=== PATIENT | male | born 1985 | race Two or more races ===

== ENCOUNTER 2019-11-30 13:50 | Emergency (ER) | payer OTHER ==
[~2019-11-30] VITALS: Ht 193 cm; Wt 104.3 kg
[~2019-11-30 13:50] MED LIST: ACEBUTCAFT PO; ALBU90OI INH; BENZ100A PO; CLON.2 PO; CYCL10 PO; CYCL1OPSOA RIGHTEYE; HYDACE5; HYDACE5 PO; IBUP600 PO; META800 PO; METO10 PO; NAPR500 PO; NEURONTIN PO; Norco 5-325 Ta1 EACH PO; OMEP20ER PO; OMEP40CA12 PO; PRILOSEC OTC; PROACE100 PO; PROCODE120 PO; PSEU120ER PO; Percocet 5-3251 EACH PO; Prednisone20 MG PO; Prilosec Otc20 MG; RXMETA800 PO; RXNAPNA550 PO; RXONDA4ODT MM; RXPROACE PO; RXPROM25S PR; RXTRAM50 PO; Ultram50 MG PO; ZOLP5
[2019-11-30] MEDS ORDERED: PANTOPRAZOLE SO40 M2 PO (14:02)
[2019-11-30] MEDS ORDERED: Prednisone20 MG PO (14:19)
[2019-11-30] MEDS ORDERED: Cleocin HCl300 MG PO (14:19)
== END 2019-11-30 14:55 | disposition home or self-care (01) ==
LOC: ER 13:50
DX: K13.0 Diseases of lips (principal); K08.89 Other specified disorders of teeth and supporting structures; T36.0X5A Adverse effect of penicillins, initial encounter; F17.210 Nicotine dependence, cigarettes, uncomplicated; Z79.899 Other long term (current) drug therapy
CPT/HCPCS: 99283; J1100; Q0163

== ENCOUNTER 2020-07-12 11:46 | Emergency (ER) | payer OTHER ==
[~2020-07-12] VITALS: Ht 193 cm; Wt 99.8 kg
[~2020-07-12 11:46] MED LIST changes: +Cleocin HCl300 MG PO; +PANTOPRAZOLE SO40 M2 PO
[2020-07-12] MEDS ORDERED: ERYT1OIN LEFTEYE (13:00)
== END 2020-07-12 13:13 | disposition home or self-care (01) ==
LOC: ER 11:46
DX: T15.92XA Foreign body on external eye, part unspecified, left eye, initial encounter (principal); F17.210 Nicotine dependence, cigarettes, uncomplicated; Z88.0 Allergy status to penicillin
CPT/HCPCS: 65222; 99283-25

== ENCOUNTER 2020-11-01 14:50 | Emergency (ER) | payer OTHER ==
[~2020-11-01] VITALS: Ht 193 cm; Wt 99.8 kg
[~2020-11-01 14:50] MED LIST changes: +ERYT1OIN LEFTEYE
== END 2020-11-01 16:39 | disposition home or self-care (01) ==
LOC: ER 14:50
DX: S61.412A Laceration without foreign body of left hand, initial encounter (principal); F17.210 Nicotine dependence, cigarettes, uncomplicated; Z88.0 Allergy status to penicillin; W23.0XXA Caught, crushed, jammed, or pinched between moving objects, initial encounter
CPT/HCPCS: 12001; 73130; 99283-25

== ENCOUNTER 2021-09-22 22:12 | Emergency (ER) | payer OTHER ==
[~2021-09-22] VITALS: Ht 193 cm; Wt 111.1 kg
[2021-09-22] MEDS ORDERED: METH40 (22:19)
[2021-09-22 22:51] LABS: BASOPHILS ABSOLUTE AUTO 0.03 K/mm3 (0.00-0.23); BASOPHILS PERCENT AUTO 0 % (0-2); EOSINOPHILS ABSOLUTE AUTO 0.01 K/mm3 (0.00-0.68); EOSINOPHILS PERCENT AUTO 0 % (0-6); Hematocrit 44.5 % (37.0-53.0); Hemoglobin 15.3 g/dL (13.5-17.5); IMMATURE GRAN ABSOLUTE AUTO 0.15 K/mm3 (0.00-0.10); IMMATURE GRAN PERCENT AUTO 1 % (0-1); LYMPHOCYTES ABSOLUTE AUTO 2.17 K/mm3 (0.84-5.20); LYMPHOCYTES PERCENT AUTO 15 % (21-46); MONOCYTES ABSOLUTE AUTO 0.34 K/mm3 (0.16-1.47); MONOCYTES PERCENT AUTO 2 % (4-13); Mean Corpuscular HGB 30.8 pg (26.0-34.0); Mean Corpuscular HGB Conc 34.4 g/dL (31.5-36.5); Mean Corpuscular Volume 90 fL (80-100); Mean Platelet Volume 9.1 fL (9.1-12.4); NEUTROPHILS ABSOLUTE AUTO 11.77 K/mm3 (1.96-9.15); NEUTROPHILS PERCENT AUTO 81 % (41-73); Platelet Count 305 K/mm3 (150-400); RDW Coefficient Variation 13.2 % (11.7-14.2); Red Blood Cell Count 4.96 M/mm3 (4.30-5.90); White Blood Cell Count 14.47 K/mm3 (4.00-11.30)
[2021-09-22 23:03] LABS: Alanine Aminotransfer (ALT/SGP 46 U/L (12-78); Albumin, Blood 4.1 g/dL (3.4-5.0); Alk Phos 97 U/L (50-136); Anion Gap 11 mmol/L (6-16); Aspartate Aminotrans (AST/SGOT 22 U/L (12-37); Bilirubin, Total 0.5 mg/dL (0.1-1.0); Blood Urea Nitrogen 12 mg/dL (8-24); Bun/Creatinine Ratio 19.9 (12.0-20.0); CO2, Blood 26 mmol/L (21-32); Calcium, Blood 10.3 mg/dL (8.5-10.1); Chloride, Blood 99 mmol/L (98-108); Globulin, Blood 4.3 g/dL (2.2-4.0); Glomerular Filtration Rate >60 (60-); Glucose, Blood 132 mg/dL (70-99); Potassium, Blood 3.9 mmol/L (3.5-5.5); Sodium, Blood 136 mmol/L (136-145); Total Protein, Blood 8.4 g/dL (6.4-8.2)
[2021-09-23] MEDS ORDERED: PROM12.5S PR (00:51)
== END 2021-09-23 03:00 | disposition home or self-care (01) ==
LOC: ER 22:12
PROVIDERS: Emergency Medicine
DX: R11.2 Nausea with vomiting, unspecified (principal); R00.0 Tachycardia, unspecified; D72.829 Elevated white blood cell count, unspecified; K21.9 Gastro-esophageal reflux disease without esophagitis; Z91.030 Bee allergy status; Z88.0 Allergy status to penicillin; Z79.899 Other long term (current) drug therapy
CPT/HCPCS: 36415; 74177; 80053; 83690; 85025; 96374; 96375; 99285-25; A9270; J0780; J1200; J2405; J7030; Q9967

== ENCOUNTER 2021-09-29 10:37 | Emergency (ER) | payer OTHER ==
[~2021-09-29] VITALS: Ht 190.5 cm; Wt 111.1 kg
[~2021-09-29 10:37] MED LIST changes: +METH40; +PROM12.5S PR
[2021-09-29 11:30] LABS: Alanine Aminotransfer (ALT/SGP 24 U/L (12-78); Albumin, Blood 3.6 g/dL (3.4-5.0); Albumin/Globulin Ratio 0.9 (0.8-1.8); Alk Phos 99 U/L (50-136); Anion Gap 5 mmol/L (6-16); Aspartate Aminotrans (AST/SGOT 17 U/L (12-37); Bilirubin, Total 0.2 mg/dL (0.1-1.0); Blood Urea Nitrogen 10 mg/dL (8-24); CO2, Blood 28 mmol/L (21-32); Calcium, Blood 9.2 mg/dL (8.5-10.1); Chloride, Blood 107 mmol/L (98-108); Creatinine, Blood 0.72 mg/dL (0.60-1.20); Globulin, Blood 3.9 g/dL (2.2-4.0); Glomerular Filtration Rate >60 (60-); Glucose, Blood 107 mg/dL (70-99); Potassium, Blood 4.2 mmol/L (3.5-5.5); Sodium, Blood 140 mmol/L (136-145); Total Protein, Blood 7.5 g/dL (6.4-8.2)
[2021-09-29 11:32] LABS: BASOPHILS ABSOLUTE AUTO 0.03 K/mm3 (0.00-0.23); BASOPHILS PERCENT AUTO 0 % (0-2); EOSINOPHILS ABSOLUTE AUTO 0.15 K/mm3 (0.00-0.68); EOSINOPHILS PERCENT AUTO 1 % (0-6); Hematocrit 41.9 % (37.0-53.0); Hemoglobin 13.7 g/dL (13.5-17.5); IMMATURE GRAN ABSOLUTE AUTO 0.07 K/mm3 (0.00-0.10); IMMATURE GRAN PERCENT AUTO 1 % (0-1); LYMPHOCYTES PERCENT AUTO 28 % (21-46); MONOCYTES ABSOLUTE AUTO 0.62 K/mm3 (0.16-1.47); MONOCYTES PERCENT AUTO 5 % (4-13); Mean Corpuscular HGB 30.4 pg (26.0-34.0); Mean Corpuscular HGB Conc 32.7 g/dL (31.5-36.5); Mean Corpuscular Volume 93 fL (80-100); Mean Platelet Volume 8.5 fL (9.1-12.4); NEUTROPHILS ABSOLUTE AUTO 8.02 K/mm3 (1.96-9.15); NEUTROPHILS PERCENT AUTO 65 % (41-73); Platelet Count 281 K/mm3 (150-400); RDW Coefficient Variation 13.2 % (11.7-14.2); RDW Standard Deviation 45.1 fL (35.1-46.3); White Blood Cell Count 12.29 K/mm3 (4.00-11.30)
[2021-09-29] MEDS ORDERED: PROM25 PO (14:31)
[2021-09-29] MEDS ORDERED: HYDHCL25 PO (14:31)
[2021-09-30] MEDS ORDERED: PROM12.5S PR (01:49)
[2021-09-30] MEDS ORDERED: CATAPRES0.1 MG PO (01:49)
== END 2021-09-29 14:45 | disposition home or self-care (01) ==
LOC: ER 10:37
PROVIDERS: Physician Assistant
DX: F11.23 Opioid dependence with withdrawal (principal); R11.2 Nausea with vomiting, unspecified; K21.9 Gastro-esophageal reflux disease without esophagitis
CPT/HCPCS: 36415; 80053; 83690; 85025; A9270; J2405; J2550; J7120

== ENCOUNTER 2021-09-29 22:23 | Emergency (ER) | payer OTHER ==
[~2021-09-29] VITALS: Ht 193 cm; Wt 108.9 kg
[~2021-09-29 22:23] MED LIST changes: +HYDHCL25 PO; +PROM25 PO
[2021-09-29 23:01] LABS: BASOPHILS ABSOLUTE AUTO 0.03 K/mm3 (0.00-0.23); BASOPHILS PERCENT AUTO 0 % (0-2); EOSINOPHILS PERCENT AUTO 0 % (0-6); Hematocrit 44.3 % (37.0-53.0); IMMATURE GRAN ABSOLUTE AUTO 0.11 K/mm3 (0.00-0.10); IMMATURE GRAN PERCENT AUTO 1 % (0-1); LYMPHOCYTES ABSOLUTE AUTO 1.68 K/mm3 (0.84-5.20); LYMPHOCYTES PERCENT AUTO 8 % (21-46); MONOCYTES ABSOLUTE AUTO 0.53 K/mm3 (0.16-1.47); MONOCYTES PERCENT AUTO 3 % (4-13); Mean Corpuscular HGB 30.5 pg (26.0-34.0); Mean Corpuscular HGB Conc 33.9 g/dL (31.5-36.5); Mean Corpuscular Volume 90 fL (80-100); Mean Platelet Volume 8.5 fL (9.1-12.4); NEUTROPHILS ABSOLUTE AUTO 18.96 K/mm3 (1.96-9.15); NEUTROPHILS PERCENT AUTO 89 % (41-73); Platelet Count 353 K/mm3 (150-400); RDW Coefficient Variation 13.2 % (11.7-14.2); RDW Standard Deviation 43.7 fL (35.1-46.3); Red Blood Cell Count 4.92 M/mm3 (4.30-5.90); White Blood Cell Count 21.31 K/mm3 (4.00-11.30)
[2021-09-29 23:19] LABS: Alanine Aminotransfer (ALT/SGP 25 U/L (12-78); Albumin, Blood 4.1 g/dL (3.4-5.0); Alk Phos 93 U/L (50-136); Anion Gap 10 mmol/L (6-16); Aspartate Aminotrans (AST/SGOT 12 U/L (12-37); Bilirubin, Total 0.4 mg/dL (0.1-1.0); Blood Urea Nitrogen 9 mg/dL (8-24); Bun/Creatinine Ratio 15.3 (12.0-20.0); CO2, Blood 25 mmol/L (21-32); Calcium, Blood 9.9 mg/dL (8.5-10.1); Chloride, Blood 101 mmol/L (98-108); Creatinine, Blood 0.59 mg/dL (0.60-1.20); Globulin, Blood 4.1 g/dL (2.2-4.0); Glomerular Filtration Rate >60 (60-); Glucose, Blood 117 mg/dL (70-99); Potassium, Blood 3.9 mmol/L (3.5-5.5); Sodium, Blood 136 mmol/L (136-145); Total Protein, Blood 8.2 g/dL (6.4-8.2)
[2021-09-30] MEDS ORDERED: CATAPRES0.1 MG PO (01:49)
[2021-09-30] MEDS ORDERED: PROM12.5S PR (01:49)
== END 2021-09-30 02:20 | disposition home or self-care (01) ==
LOC: ER 22:23
PROVIDERS: Physician Assistant
DX: F11.23 Opioid dependence with withdrawal (principal); D72.829 Elevated white blood cell count, unspecified; R11.2 Nausea with vomiting, unspecified; K21.9 Gastro-esophageal reflux disease without esophagitis; Z88.0 Allergy status to penicillin; Z91.030 Bee allergy status; Z79.899 Other long term (current) drug therapy; F17.200 Nicotine dependence, unspecified, uncomplicated
CPT/HCPCS: 36415; 80053; 83690; 85025; A9270; J0780; J1200; J2550; J7030

== ENCOUNTER 2022-02-19 12:07 | Emergency (ER) | payer OTHER ==
[~2022-02-19] VITALS: Ht 193 cm; Wt 108.9 kg
[~2022-02-19 12:07] MED LIST changes: +CATAPRES0.1 MG PO
== END 2022-02-19 13:51 | disposition home or self-care (01) ==
LOC: ER 12:07
DX: S02.2XXA Fracture of nasal bones, initial encounter for closed fracture (principal); Z88.0 Allergy status to penicillin; X58.XXXA Exposure to other specified factors, initial encounter
CPT/HCPCS: 70450

== ENCOUNTER 2022-04-20 14:41 | Emergency (ER) | payer OTHER ==
[~2022-04-20] VITALS: Ht 193 cm; Wt 113.8 kg
[2022-04-20 15:07] LABS: BASOPHILS ABSOLUTE AUTO 0.04 K/mm3 (0.00-0.23); BASOPHILS PERCENT AUTO 0 % (0-2); EOSINOPHILS ABSOLUTE AUTO 0.23 K/mm3 (0.00-0.68); EOSINOPHILS PERCENT AUTO 2 % (0-6); Hematocrit 46.7 % (37.0-53.0); Hemoglobin 15.6 g/dL (13.5-17.5); IMMATURE GRAN ABSOLUTE AUTO 0.05 K/mm3 (0.00-0.10); IMMATURE GRAN PERCENT AUTO 1 % (0-1); LYMPHOCYTES ABSOLUTE AUTO 3.11 K/mm3 (0.84-5.20); LYMPHOCYTES PERCENT AUTO 30 % (21-46); MONOCYTES ABSOLUTE AUTO 0.67 K/mm3 (0.16-1.47); MONOCYTES PERCENT AUTO 6 % (4-13); Mean Corpuscular HGB 31.1 pg (26.0-34.0); Mean Corpuscular HGB Conc 33.4 g/dL (31.5-36.5); Mean Corpuscular Volume 93 fL (80-100); Mean Platelet Volume 8.6 fL (9.1-12.4); NEUTROPHILS ABSOLUTE AUTO 6.29 K/mm3 (1.96-9.15); NEUTROPHILS PERCENT AUTO 61 % (41-73); Platelet Count 297 K/mm3 (150-400); RDW Coefficient Variation 13.4 % (11.7-14.2); RDW Standard Deviation 45.5 fL (35.1-46.3); Red Blood Cell Count 5.02 M/mm3 (4.30-5.90); White Blood Cell Count 10.39 K/mm3 (4.00-11.30)
[2022-04-20 15:35] LABS: Albumin, Blood 4.2 g/dL (3.4-5.0); Albumin/Globulin Ratio 1.1 (0.8-1.8); Bilirubin, Total 0.5 mg/dL (0.1-1.0); Bun/Creatinine Ratio 13.9 (12.0-20.0); Calcium, Blood 9.3 mg/dL (8.5-10.1); Creatinine, Blood 0.79 mg/dL (0.60-1.20); Globulin, Blood 3.8 g/dL (2.2-4.0); Potassium, Blood 3.9 mmol/L (3.5-5.5)
== END 2022-04-20 18:22 | disposition home or self-care (01) ==
LOC: ER 14:41
PROVIDERS: Physician Assistant
DX: R55 Syncope and collapse (principal); Z88.0 Allergy status to penicillin; Z91.038 Other insect allergy status; F17.200 Nicotine dependence, unspecified, uncomplicated
CPT/HCPCS: 36415; 71046; 80053; 83690; 85025; 93005; 93010; 96374; 99284-25; J2405; J7030

== ENCOUNTER 2023-03-08 09:59 | Emergency (ER) | payer OTHER ==
[~2023-03-08] VITALS: Ht 193 cm; Wt 117.9 kg
[~2023-03-08 09:59] MED LIST changes: +IBUP400 PO
[2023-03-08 10:12] VITALS: BP 153/99
[2023-03-08] MEDS ORDERED: CYCL10 PO (10:52)
== END 2023-03-08 11:08 | disposition home or self-care (01) ==
LOC: ER 09:59
DX: S30.0XXA Contusion of lower back and pelvis, initial encounter (principal); W22.8XXA Striking against or struck by other objects, initial encounter; I10 Essential (primary) hypertension; K21.9 Gastro-esophageal reflux disease without esophagitis; F17.210 Nicotine dependence, cigarettes, uncomplicated
CPT/HCPCS: 72220

== ENCOUNTER → 2023-03-10 | Outpatient (CLI) | payer OTHER ==
[2023-03-12 04:07] LABS: CHLAMYDIA TRACHOMATIS, NAA Negative (Negative)
[2023-03-13 01:09] LABS: HIV AB/P24 AG SCREEN Non Reactive (Non Reactive)
[2023-03-14 06:12] LABS: HSV-1 DNA Negative (Negative); HSV-2 DNA Negative (Negative)
== END | disposition home or self-care (01) ==
LOC: LAB SHORT 10:06 → LAB 10:06
PROVIDERS: Nurse Practitioner Family
DX: Z11.3 Encounter for screening for infections with a predominantly sexual mode of transmission (principal)
CPT/HCPCS: 36415; 86592; 87389; 87491; 87529; 87591

== ENCOUNTER → 2023-12-29 | Outpatient (CLI) | payer OTHER ==
[~2023-12-29] MED LIST changes: +LOSA50 PO; +METF500C PO; +PANT20 PO; +ZOLP10
[2024-01-02 23:43] LABS: CALPROTECTIN,FECAL 55 ug/g (<=49)
== END | disposition home or self-care (01) ==
LOC: LAB SHORT 15:26
PROVIDERS: Physician Assistant Medical
DX: R10.32 Left lower quadrant pain (principal); R19.5 Other fecal abnormalities
CPT/HCPCS: 83993

== ENCOUNTER 2024-10-23 09:28 | Emergency (ER) | payer OTHER ==
[~2024-10-23] VITALS: Ht 193 cm; Wt 117.9 kg
[2024-10-23 10:39] VITALS: BP 160/99
[2024-10-23] MEDS ORDERED: HYDR1TAB94 PO ×2 (10:48→12:25)
[2024-10-23 12:28] LABS: Chlamydia Trachomatis Urine NOT DETECTED (NOT DETECT); Neisseria Gonorrhoea Urine NOT DETECTED (NOT DETECT)
== END 2024-10-23 10:59 ==
LOC: ER 09:28
PROVIDERS: Emergency Medicine
DX: K40.90 Unilateral inguinal hernia, without obstruction or gangrene, not specified as recurrent (principal); K21.9 Gastro-esophageal reflux disease without esophagitis; I10 Essential (primary) hypertension; F17.210 Nicotine dependence, cigarettes, uncomplicated; Z79.84 Long term (current) use of oral hypoglycemic drugs; Z79.899 Other long term (current) drug therapy; Z88.0 Allergy status to penicillin; Z91.030 Bee allergy status
CPT/HCPCS: 76870; 87491; 87591; 99284-25

== ENCOUNTER 2024-12-22 21:31 | Emergency (ER) | payer OTHER ==
[~2024-12-22] VITALS: Ht 193 cm; Wt 110.2 kg
[~2024-12-22 21:31] MED LIST changes: +HYDR1TAB94 PO
[2024-12-22 21:58] LABS: BASOPHILS ABSOLUTE AUTO 0.03 K/mm3 (0.00-0.23); BASOPHILS PERCENT AUTO 0 % (0-2); EOSINOPHILS ABSOLUTE AUTO 0.15 K/mm3 (0.00-0.68); EOSINOPHILS PERCENT AUTO 1 % (0-6); Hematocrit 43.6 % (37.0-53.0); Hemoglobin 15.3 g/dL (13.5-17.5); IMMATURE GRAN ABSOLUTE AUTO 0.12 K/mm3 (0.00-0.10); IMMATURE GRAN PERCENT AUTO 1 % (0-1); LYMPHOCYTES ABSOLUTE AUTO 4.75 K/mm3 (0.84-5.20); LYMPHOCYTES PERCENT AUTO 39 % (21-46); MONOCYTES ABSOLUTE AUTO 0.73 K/mm3 (0.16-1.47); MONOCYTES PERCENT AUTO 6 % (4-13); Mean Corpuscular HGB Conc 35.1 g/dL (31.5-36.5); Mean Corpuscular Volume 88 fL (80-100); NEUTROPHILS PERCENT AUTO 53 % (41-73); Platelet Count 325 K/mm3 (150-400); RDW Coefficient Variation 13.5 % (11.7-14.2); RDW Standard Deviation 43.5 fL (35.1-46.3); Red Blood Cell Count 4.93 M/mm3 (4.30-5.90); White Blood Cell Count 12.18 K/mm3 (4.00-11.30)
[2024-12-22] MEDS ORDERED: ZOLPIDEM TARTRA10 MG PO (22:50)
[2024-12-22 22:59] LABS: Albumin, Blood 4.2 g/dL (3.4-5.0); Bilirubin, Total 0.4 mg/dL (0.1-1.0); Bun/Creatinine Ratio 21.9 (12.0-20.0); Calcium, Blood 9.6 mg/dL (8.5-10.1); Creatinine, Blood 0.73 mg/dL (0.60-1.20); Potassium, Blood 3.8 mmol/L (3.5-5.5); Total Protein, Blood 8.2 g/dL (6.4-8.2)
[2024-12-22 23:30] VITALS: BP 144/95
== END 2024-12-22 23:45 | disposition home or self-care (01) ==
LOC: ER 21:31
PROVIDERS: Physician Assistant
DX: R07.89 Other chest pain (principal); I10 Essential (primary) hypertension
CPT/HCPCS: 71046; 80053; 83690; 84484; 85025; 93005; 93010; 99285-25

== ENCOUNTER 2025-01-15 05:54 | Day surgery (SDC) | payer OTHER ==
[2025-01-15] VITALS (13 sets, daily range): BP systolic 118–147; BP diastolic 60–91
[~2025-01-15] VITALS: Ht 193 cm; Wt 115.8 kg
[~2025-01-15 05:54] MED LIST changes: +ZOLPIDEM TARTRA10 MG PO
[2025-01-15] MEDS ORDERED: Lactated Ringer's 1,000 ML IV SCH (06:15)
[2025-01-15] MEDS ORDERED: CeFAZolin Sodium 2,000 MG in NS 100 ML IV SCH (06:15)
[2025-01-15] MEDS ORDERED: ASPI81CH PO (06:25)
[2025-01-15] MEDS ORDERED: Bupivacaine 0.5% HCl 5 MG/ML 30MLVIAL ONE (07:11)
[2025-01-15] MEDS ORDERED: Midazolam HCl 1MG / ML 2ML Vial ONE (07:17)
[2025-01-15] MEDS ORDERED: FentaNYL Citrate 50 MCG/ML 2 ML Injection ONE ×2 (07:17→10:10)
[2025-01-15] MEDS ORDERED: Rocuronium Bromide 10 MG/ML 5ML Injection IV ONE ×3 (07:18→08:45)
[2025-01-15] MEDS ORDERED: Lidocaine HCl 2% 20 ML MDV ONE (07:18)
[2025-01-15] MEDS ORDERED: Ondansetron HCl 2 MG / ML 2ML Vial ONE (07:18)
[2025-01-15] MEDS ORDERED: Dexamethasone Sod Phos 10 MG/ML 1ML VIAL ONE (07:18)
[2025-01-15] MEDS ORDERED: propofoL 20 ML IV ONE (07:18)
[2025-01-15] MEDS ORDERED: Lidocaine HCl 2% Jelly 120MG/6ML SYR (20MG PER ML) ONE (07:18)
[2025-01-15] MEDS ORDERED: HYDROmorphone HCl 0.5 MG/0.5 ML SYR ONE ×3 (07:38→10:56)
[2025-01-15] MEDS ORDERED: Ketorolac Tromethamine 30mg Vial ONE (07:39)
[2025-01-15] MEDS ORDERED: Ondansetron HCl 2 MG / ML 2ML Vial IV PRN (07:45)
[2025-01-15] MEDS ORDERED: Labetalol HCL 5 MG/ML 4ML Injection (Single Dose) IV PRN (07:50)
[2025-01-15] MEDS ORDERED: ePHEDrine Sulfate 50 MG/ML 1ML Injection IV PRN (07:50)
[2025-01-15] MEDS ORDERED: Prochlorperazine Edisylate 10 mg Vial IV PRN (07:50)
[2025-01-15] MEDS ORDERED: LORazepam 2 MG/ML 1ML Injection IV PRN (07:50)
[2025-01-15] MEDS ORDERED: FentaNYL Citrate 50 MCG/ML 2 ML Injection IV PRN ×2 (07:50→07:55)
[2025-01-15] MEDS ORDERED: Albuterol 2.5 MG/3 ML VIAL INH PRN (07:50)
[2025-01-15] MEDS ORDERED: HYDROmorphone HCl 0.5 MG/0.5 ML SYR IV PRN ×2 (07:55→08:10)
[2025-01-15] MEDS ORDERED: Labetalol HCL 5 MG/ML 4ML Injection (Single Dose) ONE (08:07)
[2025-01-15] MEDS ORDERED: Sugammadex Sodium 200 MG/2ML SDV (100 MG/ML) ONE (09:35)
[2025-01-15] MEDS ORDERED: OxyCODONE 5 mg/Acetamin 325 mg TABLET PO PRN (10:05)
--- NOTE | 2025-01-15 10:54 | NUR ---
PT SITTING UP IN CART W/ AT BEDSIDE. PT TEXTING ON CELLPHONE & CONVERSING W/ . PT C/O PAIN TO ABDOMEN STATING "IT FEELS LIKE A DONKEY KICKED ME IN THE STOMACH." VSS, ON RA. FLACC SCORE 2. INCISIONS C/D/I.
--- NOTE | 2025-01-15 11:03 | NUR ---
PT EATING CRACKERS & DRINKING CLEAR LIQUIDS W/O COMPLAINT. PT CONTINUES TO INTERACT ON CELLPHONE. PT'S REMAINS AT BEDSIDE VISITING W/ PT. VSS, ON RA. PT ABLE TO MOVE ABOUT IN CART TO OPEN CRACKERS & SODA.
--- NOTE | 2025-01-15 11:05 | NUR ---
PT REQUESTING HERNIA BELT TO GO HOME WITH. LUDA ABDUL, NOTIFIED DR. MENESES. DR. MENESES STATES THAT HERNIA BELT IS NOT NECESSARY, BUT PT CAN HAVE ONE IF WANTED. RELAYED THIS TO PT & PT'S .
--- NOTE | 2025-01-15 11:46 | NUR ---
D/C INSTRUCTIONS GIVEN TO PT & PT'S MOM, UNDERSTANDING VERBALIZED. PT CONTINUES TO C/O PAIN, FREQUENT EDUCATION PROVIDED ABOUT POST-OP PAIN EXPECTATIONS. PT GIVEN DOSE OF PO PAIN MEDICINE PER POST-OP ORDERS. PT DRANK 2 CANS OF DIET LEMON-AKHIOK SODA & ATE 2 PACKS OF SALTINE CRACKERS W/O COMPLAINT. PT DRESSED SELF W/ MIN ASSIST FROM MOM. PT ASKS IF HE NEEDS TO WEAR SCROTAL/HERNIA SUPPORT BAND HE DIDN'T PUT IT ON. REITERATED TO PT THAT DR. MENESES SAID IT IS NOT NECESSARY, BUT PER PT'S REQUEST, IT WAS PROVIDED. PT PLACED IN BELONGINGS BAG. STEADY GAIT NOTED UPON AMBULATION FROM CART TO WC & WC TO VEHICLE. ABDOMINAL LAP SITES X3 REMAIN C/D/I. HARD COPIES OF PAIN RX & MESH IMPLANT CARDS PROVIDED TO PT & PLACED IN D/C PACKET. PAIN RX & MESH IMPLANT CARDS VISUALIZED W/ PT IN D/C PACKET BEFORE DISCHARGING FROM [facility]. PT HAS ALL BELONGINGS W/ HIM, INCLUDING CELLPHONE. PT WHEELED TO MAIN ENTRANCE WHERE HE WILL BE DRIVEN HOME BY MOM IN PRIVATE VEHICLE.
== END 2025-01-15 23:00 | disposition home or self-care (01) ==
LOC: ORSCMMR 05:54 → ORD 07:30 → ORSCMMR 07:30
PROVIDERS: Surgery
PROC: 0YUA4JZ Supplement Bilateral Inguinal Region with Synthetic Substitute, Percutaneous Endoscopic Approach (ICD-10-PCS; principal; 2025-01-15 07:30)
PROC: 3E0T3BZ Introduction of Anesthetic Agent into Peripheral Nerves and Plexi, Percutaneous Approach (ICD-10-PCS; principal; 2025-01-15 07:30)
PROC: 8E0W4CZ Robotic Assisted Procedure of Trunk Region, Percutaneous Endoscopic Approach (ICD-10-PCS; principal; 2025-01-15 07:30)
DX: K40.00 Bilateral inguinal hernia, with obstruction, without gangrene, not specified as recurrent (principal); K66.0 Peritoneal adhesions (postprocedural) (postinfection); D17.6 Benign lipomatous neoplasm of spermatic cord; E11.9 Type 2 diabetes mellitus without complications; Z79.899 Other long term (current) drug therapy; Z79.82 Long term (current) use of aspirin
CPT/HCPCS: 82947; 88304; A9270; C1781; J0690; J1100; J1171; J1885; J2250; J2405; J2704; J3010; J7120

== ENCOUNTER 2025-06-10 17:06 | Emergency (ER) | payer OTHER ==
[~2025-06-10] VITALS: Ht 193 cm; Wt 112.0 kg
[~2025-06-10 17:06] MED LIST changes: +ASPI81CH PO
[2025-06-10 17:34] LABS: BASOPHILS ABSOLUTE AUTO 0.03 K/mm3 (0.00-0.23); BASOPHILS PERCENT AUTO 0 % (0-2); EOSINOPHILS ABSOLUTE AUTO 0.09 K/mm3 (0.00-0.68); EOSINOPHILS PERCENT AUTO 1 % (0-6); Hematocrit 42.6 % (37.0-53.0); Hemoglobin 14.3 g/dL (13.5-17.5); IMMATURE GRAN ABSOLUTE AUTO 0.02 K/mm3 (0.00-0.10); IMMATURE GRAN PERCENT AUTO 0 % (0-1); LYMPHOCYTES ABSOLUTE AUTO 3.57 K/mm3 (0.84-5.20); LYMPHOCYTES PERCENT AUTO 40 % (21-46); MONOCYTES ABSOLUTE AUTO 0.47 K/mm3 (0.16-1.47); MONOCYTES PERCENT AUTO 5 % (4-13); Mean Corpuscular HGB Conc 33.6 g/dL (31.5-36.5); Mean Corpuscular Volume 90 fL (80-100); NEUTROPHILS ABSOLUTE AUTO 4.75 K/mm3 (1.96-9.15); NEUTROPHILS PERCENT AUTO 53 % (41-73); NRBC ABSOLUTE 0.00 K/mm3 (0.00-0.02); NRBC Auto 0.0 /100 WBC (0.0-0.2); Platelet Count 255 K/mm3 (150-400); RDW Coefficient Variation 13.1 % (11.7-14.2); RDW Standard Deviation 43.5 fL (35.1-46.3)
[2025-06-10 17:55] LABS: Alanine Aminotransfer (ALT/SGP 28.0 U/L (12-78); Albumin, Blood 4.1 g/dL (3.4-5.0); Albumin/Globulin Ratio 1.2 (0.8-1.8); Anion Gap 10.0 mmol/L (3-11); Aspartate Aminotrans (AST/SGOT 17.0 U/L (12-37); Bilirubin, Total 0.4 mg/dL (0.1-1.0); Blood Urea Nitrogen 20.0 mg/dL (8-24); CO2, Blood 24.0 mmol/L (21-32); Calcium, Blood 8.8 mg/dL (8.5-10.1); Chloride, Blood 106.0 mmol/L (98-108); Creatinine, Blood 0.82 mg/dL (0.60-1.20); Globulin, Blood 3.4 g/dL (2.2-4.0); Glucose, Blood 120.0 mg/dL (70-99); Potassium, Blood 3.7 mmol/L (3.5-5.5); Sodium, Blood 136.0 mmol/L (136-145); Total Protein, Blood 7.5 g/dL (6.4-8.2)
[2025-06-10] MEDS ORDERED: IBUP600 PO (20:10)
[2025-06-10] MEDS ORDERED: ACET500 PO (20:10)
[2025-06-10 20:25] VITALS: BP 139/84
== END 2025-06-10 20:28 | disposition home or self-care (01) ==
LOC: ER 17:06
PROVIDERS: Student in an Organized Health Care Education/Training Program
DX: R07.89 Other chest pain (principal); K21.9 Gastro-esophageal reflux disease without esophagitis; I10 Essential (primary) hypertension; F17.210 Nicotine dependence, cigarettes, uncomplicated; Z88.0 Allergy status to penicillin; Z88.8 Allergy status to other drugs, medicaments and biological substances; Z91.030 Bee allergy status; Z79.899 Other long term (current) drug therapy; Z79.82 Long term (current) use of aspirin
CPT/HCPCS: 71046; 80053; 83690; 84484; 85025; 93005; 93010; 99285-25